=== PATIENT | female | born 1950 | race Caucasian/White ===

== ENCOUNTER 2016-07-20 23:33 | Emergency (ER) | payer MEDICARE, OTHER ==
[~2016-07-20] VITALS: Ht 167.6 cm; Wt 84.0 kg
[2016-07-20 23:35] VITALS: BP 133/79; PULSE 60; RESP 18; TEMP 97.7; O2SAT 95
[2016-07-21] MEDS ORDERED: TETANUS/DIPHTHERIA TOXOID ADULT 0.5 ML VIAL IM ONE
--- NOTE | 2016-07-21 00:06 | PD ---
HPI Chief Complaint: Fall Time Seen by Provider: 23:54 Travel History International Travel<30 days: No Contact w/Intl Traveler<30days: No Traveled to known affect area: No History of Present Illness HPI 66-year-old female with history of no significant past medical issues, presents to the ER today because she states that she tripped and fell hitting her left knee, left elbow, left wrist area and her left lower lip. She states that she has a loose tooth on her front left side as well. She denies any head injury or loss of consciousness or any other injuries. Modifying Factors: None Associated Signs & Symptoms: Trip and fall, left wrist, knee, elbow injuries, tooth injury Risk Factors: None PFSH Past Medical History Diminished Hearing: No Medical other: Yes (HYPOGLYCEMIA) Immunizations Current: Yes Tetanus Vaccination: > 5 Years Tubal Ligation: Yes Past Surgical History Tonsillectomy: Yes Social History Alcohol Use: Yes (2-3 DRINKS ) Tobacco Use: No Substance Use: Yes (HX OF) Allergies-Medications (Allergen,Severity, Reaction): Coded Allergies: Codeine (Verified Adverse Reaction, Intermediate, Nausea/Vomiting, 07/20/16 ) Reported Meds & Prescriptions Reported Meds & Active Scripts Active Lortab (Hydrocodone-Acetaminophen) 5-325 Mg Tab 1 Tab PO Q6H PRN Review of Systems Except as stated in HPI: all other systems reviewed are Neg Physical Exam Narrative GENERAL: Well-nourished, well-developed elderly white female patient in no acute distress. Awake, alert, oriented 3. SKIN: Warm and dry. Small 1 cm circular skin tear of the right first toe. There is a 2 cm through and through laceration of the left lower lip contained within the vermilion border. HEAD: Normocephalic. EYES: No scleral icterus. No injection or drainage. DENTAL: Tooth #9 is loose. No malocclusion. No mandibular tenderness or facial tenderness. No claudication. NECK: Supple, trachea midline. CARDIOVASCULAR: Regular rate and rhythm without murmurs, gallops, or rubs. RESPIRATORY: Breath sounds equal bilaterally. No accessory muscle use. GASTROINTESTINAL: Abdomen soft, non-tender, nondistended. MUSCULOSKELETAL: No cyanosis, or edema. BACK: Nontender without obvious deformity. No CVA tenderness. Left arm: There is notable abrasion to the inner portion of the left elbow. Nontender range of motion of the elbow. There is notable ecchymosis and edema over the left radial wrist. Nontender range of motion of the wrist. Nontender to palpation. Neurovascularly intact. Data Data Last Documented VS Vital Signs Date Time Temp Pulse Resp B/P Pulse Ox O2 Delivery O2 Flow Rate FiO2 07/20/16 23:35 97.7 60 18 133/79 95 Room Air Orders Tetanus/Diphtheria Tox Adult (Tetanus/Di (07/21/16 00:00) Elbow, Complete (4 Vws) (07/20/16 23:54) Wrist, Complete (Fjn1esy) (07/20/16 23:54) Lidocaine 2% Inj (Xylocaine 2% Inj) (07/21/16 00:45) Splint Or Brace Apply/Monitor (07/21/16 00:55) MDM Medical Decision Making Medical Screen Exam Complete: Yes Emergency Medical Condition: Yes Medical Record Reviewed: Yes Differential Diagnosis Trip and fall, loose tooth, lip laceration, left elbow and wrist contusion, rule out fractures Narrative Course Tetanus shot was given to the patient in the ER. X-ray of the left wrist shows a nondisplaced distal radial fracture that involves the joint line. The fracture was discussed with Dr. Jimenez who states that he would like the patient to be splinted and follow up in his office in 2 weeks. Laceration is sutured by PA in the ER. Patient is given wound care instructions. She should return for any signs of infection, increased pain in the wrist, or new issues as needed. At this point, the plan was discussed with patient and she states understanding. Diagnosis Primary Impression: Nondisplaced fracture of left radius Referrals: Jaswant Cr MD Med/Other Pt SpecificInfo: Prescription(s) given Scripts Hydrocodone-Acetaminophen (Lortab)5-325 Mg Tab1 Tab PO Q6H PRN (PAIN) #15 TAB Ref 0 Prov:Maximo Kaplan MD 07/21/16 Disposition: 01 DISCHARGE HOME Condition: Stable Maximo Kaplan MD Jul 21, 2016 00:06
--- NOTE | 2016-07-21 00:19 | RADRPT ---
EXAM DATE/TIME: 07/21/2016 00:03 [facility] COMPARISON: No previous studies available for comparison. INDICATIONS : Left elbow pain after falling today. MEDICAL HISTORY : None. SURGICAL HISTORY : None. ENCOUNTER: Initial ACUITY: 1 day PAIN SCORE: 7/10 LOCATION: Left lateral elbow. FINDINGS: Multiple view examination of the left elbow demonstrates no soft tissue swelling, joint effusion, or fracture. The osseous structures are in normal alignment. Bony mineralization is normal. CONCLUSION: 1. Negative examination of the elbow.8 Vahid Smith MD on July 21, 2016 at 0:17 Board Certified Radiologist. This report was verified electronically.
--- NOTE | 2016-07-21 00:20 | RADRPT ---
EXAM DATE/TIME: 07/21/2016 00:05 [facility] COMPARISON: No previous studies available for comparison. INDICATIONS : Left wrist pain after falling today. MEDICAL HISTORY : None. SURGICAL HISTORY : None. ENCOUNTER: Initial ACUITY: 1 day PAIN SCORE: 7/10 LOCATION: Left lateral wrist. FINDINGS: There is a nondisplaced fracture of the distal radius with intra-articular extension seen only on the oblique view. Carpal bones appear intact. Bony mineralization is normal. CONCLUSION: 1. Nondisplaced fracture distal radius. Vahid Smith MD on July 21, 2016 at 0:17 Board Certified Radiologist. This report was verified electronically.
[2016-07-21] MEDS ORDERED: LIDOCAINE HCL 2% 50 ML VIAL INFIL ONE (00:45)
[2016-07-21] MEDS ORDERED: HYDR-3533 PO (00:54)
[2016-07-21] MEDS ORDERED: PENI500T PO (01:54)
--- NOTE | 2016-07-21 01:58 | PD ---
Physical Exam Date Seen by Provider: Jul 21, 2016 Time Seen by Provider: 01:55 Narrative Skin: The patient has a puncture laceration to the wet vermilion of the left lower lip measuring 1.5 cm. There is a superficial abrasion avulsion to the dry vermilion opposing this area. This is nonsuturable. No foreign body. Neurovascular intact. Mild swelling. Data Data Last Documented VS Vital Signs Date Time Temp Pulse Resp B/P Pulse Ox O2 Delivery O2 Flow Rate FiO2 07/20/16 23:35 97.7 60 18 133/79 95 Room Air Orders Tetanus/Diphtheria Tox Adult (Tetanus/Di (07/21/16 00:00) Elbow, Complete (4 Vws) (07/20/16 23:54) Wrist, Complete ([id number]) (07/20/16 23:54) Lidocaine 2% Inj (Xylocaine 2% Inj) (07/21/16 00:45) Splint Or Brace Apply/Monitor (07/21/16 00:55) MDM Medical Record Reviewed: Yes Supervised Visit with KHANH: Yes Differential Diagnosis MDM: High Differential diagnoses: Fracture, sprain, strain, dislocation, contusion, neurovascular injury Narrative Course Patient's laceration is closed with sutures. Procedures Procedure Narrative LACERATION LOCATION: Left lower lip wet vermilion LENGTH: 1.5 cm NUMBER OF STITCHES/MIAH: #3 REPAIR: The area of the laceration was prepped with Betadine and sterilely draped. The laceration was infiltrated with 1% lidocaine. The wound was copiously irrigated and explored without evidence of foreign body, tendon injury or neurovascular injury. The wound was closed using 5-0 Vicryl. This was a simple single layer repair. Patient tolerated the procedure well. Diagnosis Primary Impression: Nondisplaced fracture of left radius Qualified Code: S52.502A - Nondisplaced fracture of distal end of left radius , initial encounter Additional Impression: Facial laceration Qualified Code: S01.81XA - Facial laceration, initial encounter Referrals: Jaswant Cr MD Patient Instructions: General Instructions, Arm Fracture in Adults (ED) Departure Forms: Tests/Procedures Scripts Penicillin V Potassium 500 Mg [id number] Mg PO Q6H 7 Days Ref 0 Prov:Maximo Kaplan MD 07/21/16 Hydrocodone-Acetaminophen (Lortab)5-325 Mg Tab1 Tab PO Q6H PRN (PAIN) #15 TAB Ref 0 Prov:Maximo Kaplan MD 07/21/16 Disposition: 01 DISCHARGE HOME Condition: Stable [place] Valdez Jul 21, 2016 01:58
[2016-07-21] MEDS ORDERED: ALPR.25 PO (01:59)
[2016-07-21] MEDS ORDERED: LORA-373 PO (01:59)
[2016-07-21] MEDS ORDERED: METO25TA3 PO (02:00)
== END 2016-07-21 02:02 | disposition home or self-care (01) ==
LOC: NEPC 23:33
DX: S52.502A Unspecified fracture of the lower end of left radius, initial encounter for closed fracture (principal); W01.0XXA Fall on same level from slipping, tripping and stumbling without subsequent striking against object, initial encounter; K08.89 Other specified disorders of teeth and supporting structures; S01.511A Laceration without foreign body of lip, initial encounter; Z23 Encounter for immunization
CPT/HCPCS: 12011; 73080; 73110; 90471; 90714